=== PATIENT | female | born 1940 | race Caucasian/White ===

== ENCOUNTER 2021-02-05 20:06 | Inpatient (IN) | payer MEDICARE, BC ==
[~2021-02-05] VITALS: Ht 165.1 cm; Wt 68.3 kg
--- NOTE | 2021-02-05 20:10 | NUR ---
Patient arrives via EMS RA 99 for c/o ground level fall. 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 + head injury, dressing in place by EMS. Denies LOC. AAOx4. No blood thinners. VSS. Allergic to sulfa.
[2021-02-05] MEDS ORDERED: TDAP DIPH,PERTUSS,TET VAC/PF 0.5 ML DISP.SYRIN IM ONE ×2 (20:30→20:32)
[2021-02-05] MEDS ORDERED: IV NORMAL SALINE 1000 ML BAG IV ONE (20:30)
[2021-02-05] MEDS ORDERED: ONDANSETRON 4 MG/2 ML VIAL IV ONE (20:30)
[2021-02-05] MEDS ORDERED: ONDANSETRON 4 MG/2 ML VIAL ONE (20:32)
--- NOTE | 2021-02-05 20:33 | NUR ---
Patient denies LOC, but it was an unwitnessed fall and LOC is presumed.
[2021-02-05 20:36] LABS: HEMATOCRIT 41.8 % (31.2-41.9); PLATELET COUNT (AUTO) 112 K/uL (179-408)
[2021-02-05 20:40] LABS: CREATININE 0.8 mg/dL (0.6-1.3); POTASSIUM 3.7 mmol/L (3.5-5.1)
--- NOTE | 2021-02-05 20:41 | NUR ---
Patient will be admitted to Telemetry , room 302
--- NOTE | 2021-02-05 21:10 | NUR ---
ER MD at bedside for suture placement. Suture tray/Lido W/ epi placed at bedside per Dr Jc request.
[2021-02-05 21:40] VITALS: BP 133/71
--- NOTE | 2021-02-05 21:45 | NUR ---
Patient ambulated to restroom, well tolerated. patient c/o nausea and vertigo, I spoke to ER MD, no orders are indicated at this time.
--- NOTE | 2021-02-05 21:53 | NUR ---
Per registration, patient okay to admit as inpatient to [facility]. [facility] called @ this time. Patient will be telemetry admit for dx Syncope. Additional diagnosis with be scal laceration and concussion per Dr Jc.
--- NOTE | 2021-02-05 21:56 | NUR ---
Pt. admitted to tELE , under care of JHONATHAN CLIFTON NP. Belongs List completed
[2021-02-05] MEDS ORDERED: AMIT10TA6 PO (22:01)
[2021-02-05] MEDS ORDERED: LETR2.5T PO (22:01)
[2021-02-05] MEDS ORDERED: ALPR0.255 PO (22:01)
[2021-02-05] MEDS ORDERED: ROSU5TAB PO (22:01)
[2021-02-05] MEDS ORDERED: ESCI5TAB PO (22:01)
--- NOTE | 2021-02-05 22:13 | NUR ---
Report to [facility] [place]. Family member aware of visitation policy.
[2021-02-05] MEDS ORDERED: MAGNESIUM HYDROXIDE 30 ML LIQUID UDC PO PRN (22:30)
[2021-02-05] MEDS ORDERED: HYDROCODONE/APAP 5-325MG TABLET PO PRN (22:30)
[2021-02-05] MEDS ORDERED: Z GUARD REMEDY PASTE 57 GM TUBE TOP PRN (22:30)
--- NOTE | 2021-02-05 22:30 | NUR ---
Admitted a 80 y/o female to Telemetry with an admitting diagnosis of Syncope. Pt came on a wheelchair, accompanied by ER nurse. Transferred to bed with assistance. Pt is A&OX4, verbally responsive, able to make needs known. Head to toe assessment done, pt shows no signs of distress. Admission care rendered, belongings checked and placed at bedside. Safety measures initiated, call light within reach.
[2021-02-05] MEDS: IV NS 1000 ML 1,000 ML IV PRN (23:09)
[2021-02-05] MEDS: ONDANSETRON 4 MG/2 ML VIAL IV PRN (23:16)
[2021-02-06] VITALS (8 sets, daily range): BP systolic 118–150; BP diastolic 62–76
[2021-02-06 01:29] LABS: *BILIRUBIN,URIN NEGATIVE (NEGATIVE); *BLOOD, URINE 1+ (NEGATIVE); *CLARITY,URINE CLEAR (CLEAR); *COLOR,URINE YELLOW (YELLOW); *KETONES,URINE 2+ (NEGATIVE); LEUKOCYTE ESTERASE ,URINE NEGATIVE (NEGATIVE); NITRITE, URINE NEGATIVE (NEGATIVE); UGLUCOSE NEGATIVE (NEGATIVE)
[2021-02-06 01:50] LABS: BACTERIA,URINE NONE SEEN /HPF (NONE SEEN); WBC,URINE 0-3 /HPF (0-3)
[2021-02-06 01:51] LABS: SQUAMOUS EPITHELIAL CELL,UR FEW /HPF (NONE SEEN)
[2021-02-06] MEDS: PANTOPRAZOLE SODIUM 40 MG TABLET.DR PO SCH (06:06)
--- NOTE | 2021-02-06 07:00 | NUR ---
No signs of acute distress noted the whole night. Tolerated medications well. Pt felt nauseous when she sat up this morning but felt okay after a while. BP went up when position was changed. See vital signs form. Assisted pt to the bathroom. No signs of acute distress. Safety measures maintained at all times, all needs attended to and met. For PT eval today.
[2021-02-06 07:06] LABS: HEMATOCRIT 41.5 % (31.2-41.9); MEAN CORPUSCULAR HEMOGLOBIN 29.3 uug (24.7-32.8); MEAN CORPUSCULAR VOLUME 87.7 fL (75.5-95.3); PLATELET COUNT (AUTO) 131 K/uL (179-408)
[2021-02-06 07:26] LABS: CREATININE 0.8 mg/dL (0.6-1.3); MAGNESIUM 2.2 mg/dL (1.8-2.4); PHOSPHOROUS 2.7 mg/dL (2.5-4.9); POTASSIUM 4.1 mmol/L (3.5-5.1)
[2021-02-06 07:36] LABS: THYROID STIMULATING HORMONE 2.255 mIU/mL (0.358-3.740)
--- NOTE | 2021-02-06 08:30 | NUR ---
PATIENT IN ROOM AWAKE ALERT AND ORIENTED WITH HER SON AT THE BEDSIDE STATED FEELS NAUSEA MEDICATED WITH ZOFRAN ORDERED ALSO STATED THAT SHE TAKES HER XANAX LIPITOR AND ELAVIL AT [facility] NOTIFIED CALL LIGHTS AND HER PERSONAL BELONGINGS ARE WITHIN EASY REACH MADE COMFORTABLE WILL [id number] TO OBSERVE
[2021-02-06] MEDS: ONDANSETRON 4 MG/2 ML VIAL IV PRN ×3 (08:44→21:00)
[2021-02-06] MEDS: ESCITALOPRAM OXALATE 10 MG TABLET PO SCH (08:49)
[2021-02-06] MEDS ORDERED: Medication Not On Formulary EA (Letrozole (Femara) 1 TAB) PO SCH (09:00)
[2021-02-06] MEDS ORDERED: ATORVASTATIN 20 MG TABLET PO SCH ×2 (09:00→21:00)
[2021-02-06] MEDS ORDERED: AMITRIPTYLINE HCL 10 MG TABLET PO SCH ×2 (09:00→21:00)
[2021-02-06] MEDS ORDERED: ALPRAZOLAM 0.25 MG TABLET PO SCH ×2 (09:00→21:00)
--- NOTE | 2021-02-06 11:40 | NUR ---
SPOKE WITH [id number] RE BRINGING IN HER FEMORA STATED THAT SHE ALREADY INFORMED HER SON TO BRING IT.
--- NOTE | 2021-02-06 14:41 | NUR ---
DR JONES HERE TO SEE PATIENT AND STATED TO RECHECK ORTHORSTATIC BLOOD PRESSURE ABOUT 1530 CHECK IT FROM LYING TO STANDING NO SITTING AND NOTED.
[2021-02-06] MEDS: ACETAMINOPHEN 325 MG TABLET PO PRN (15:04)
[2021-02-06] MEDS: NEOMY/BACITRAC/POLYMI OINT 28.35 GM TUBE TOP SCH (16:28)
--- NOTE | 2021-02-06 16:39 | NUR ---
CALL PLACED TO DR JONES AT [phone] AND MESSAGE LEFT ON HIS VOICE MAIL RE RESULTS OF THE ORTHOSTATIC BLOOD PRESSURE THAT HE REQUESTED SEE LONG FORM FOR DETAILS.
--- NOTE | 2021-02-06 18:00 | NUR ---
MEDICATED WITH ZOFRAN AND TYLENOL ORDERED AND HAS BEEN HELPFUL
--- NOTE | 2021-02-06 19:30 | NUR ---
Received pt in bed, awake and verbally responsive, able to make needs known. Denies any lightheadedness, nausea or vomiting. No s/s of respiratory distress. IVF infusing well. Discussed plan of care with the pt. Pt verbalized understanding. Safety measures initiated, call light within reach.
[2021-02-06] MEDS: IV NS 1000 ML 1,000 ML IV PRN (23:43)
[2021-02-07] VITALS (7 sets, daily range): BP systolic 96–165; BP diastolic 56–81
[2021-02-07] MEDS: ACETAMINOPHEN 325 MG TABLET PO PRN ×2 (02:21→10:57)
[2021-02-07] MEDS: PANTOPRAZOLE SODIUM 40 MG TABLET.DR PO SCH (06:24)
--- NOTE | 2021-02-07 06:55 | NUR ---
Pt slept through the night, no signs of acute distress noted. Administered due medications and tolerated well by the pt. Did an orthostatic BP check. BP are as follows as of 06:25. Laying down: BP- 130/68, P- 65. Sitting down: BP-117/70, P-78, Standing up: BP- 96/56, P- 83. No episodes of nausea and vomiting during BP check. Notified Dr. Blevins of the results. Safety measures maintained at all times, all needs attended to and met.
--- NOTE | 2021-02-07 07:45 | NUR ---
RECEIVED PATIENT IN BED AWAKE ALERT AND ORIENTED STATED FEELS MUCH BETTER WITH THE DIZZINESS REMAIN ON IVF ORDERED WITH NO S/S OF INFILTERATION ON SITE BACK OF HERS LACERATIONS WITH NO DRAINAGE WITH STITCHES INTACT AND TREATMENT ORDERED.DR JONES HERE AND SEEN PATIENT WITH NO NEW ORDERS AT THIS TIME CALL LIGHTS AND PERSONAL BELONGINGS PLACED WITHIN EASY REACH WILL CONTINUE TO OBSERVE.
[2021-02-07] MEDS: ESCITALOPRAM OXALATE 10 MG TABLET PO SCH (08:33)
[2021-02-07] MEDS: NEOMY/BACITRAC/POLYMI OINT 28.35 GM TUBE TOP SCH (08:33)
[2021-02-07] MEDS ORDERED: FEMARA 2.5 MG PO SCH (09:00)
--- NOTE | 2021-02-07 09:55 | NUR ---
NEW ORDERS FOR NS BOLUS FROM JHONATHAN NOTED AT THIS TIME.
[2021-02-07] MEDS ORDERED: IV NS 1000 ML 1,000 ML IV ONE ×2 (10:00→15:45)
--- NOTE | 2021-02-07 10:16 | NUR ---
NS BOLUS STARTED ORDERED AT THIS TIME.
--- NOTE | 2021-02-07 15:39 | NUR ---
ORTHOSTATIC BLOOD PRESSURE SENT TO JHONATHAN AND SHE WANTS PATIENT TO HAVE ANOTHER LITER OF NORMAL SALINE AND THEN RE CHECK BEFORE SHE CAN DECIDE IF PATIENT CAN BE DISCHARGED.
--- NOTE | 2021-02-07 18:28 | NUR ---
SECOND BAG OF NORMAL SALINE COMPLETED AND ORTHOSTATIC BLOOD PRESSURE RECHECKED AND JHONATHAN TRIAL CONSULTANT NOTIFIED AND SHE STATED TO DISCHARGE PATIENT HOME TODAY PATIENT AND HER SON IS AWARE.
--- NOTE | 2021-02-07 18:40 | NUR ---
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
--- NOTE | 2021-02-07 18:49 | NUR ---
SEE LONG FORM FOR THE LATEST NUMBERS OF THE ORTHOSTATIC BLOOD PRESSURE ORDERED
== END 2021-02-07 18:40 | disposition home or self-care (01) | DRG 312 ==
LOC: ER 20:06 → TELE3 22:18
PROVIDERS: ADMIT Registered Nurse; ATTEND Registered Nurse
PROC: 0HQ0XZZ Repair Scalp Skin, External Approach (ICD-10-PCS; principal; 2021-02-05)
DX: I95.1 Orthostatic hypotension (principal); E78.5 Hyperlipidemia, unspecified; F41.9 Anxiety disorder, unspecified; F32.9 Major depressive disorder, single episode, unspecified; M19.90 Unspecified osteoarthritis, unspecified site; R51.9 Headache, unspecified; I44.0 Atrioventricular block, first degree; S01.01XA Laceration without foreign body of scalp, initial encounter; W19.XXXA Unspecified fall, initial encounter; Y93.9 Activity, unspecified; Y92.009 Unspecified place in unspecified non-institutional (private) residence as the place of occurrence of the external cause; M54.2 Cervicalgia; I49.8 Other specified cardiac arrhythmias; Z20.822 Contact with and (suspected) exposure to COVID-19
CPT/HCPCS: 36415; 70030-TC; 70450; 71045; 83605; 83735; 84100; 84443; 85025; 85730; 90715; 93307; 93880; A4663; G0378; J2405; J3490; J7030